=== PATIENT | male | born 1955 | race Caucasian/White ===

== ENCOUNTER 2018-08-20 14:00 | Emergency (ER) | payer BC ==
[2018-08-20 14:06] VITALS: TEMP 98
[2018-08-20] MEDS ORDERED: HYDROmorphone 1 MG/ML 1 ML SYRINGE IVP STA (15:24)
[2018-08-20] MEDS ORDERED: MORPHINE SULFATE 4 MG/ML SYRINGE IV STA (15:25)
--- NOTE | 2018-08-20 15:33 | XR ---
EXAMINATION TYPE: XR chest 2V DATE OF EXAM: 08/20/2018 COMPARISON: NONE HISTORY: Shortness of breath TECHNIQUE: Frontal and lateral views of the chest are obtained. FINDINGS: Scattered senescent parenchymal changes noted. Hyperinflation compatible with COPD. No evidence for infiltrate. No evidence for atelectasis. Heart size is stable. Mediastinal structures are stable and grossly unremarkable. No evidence for hilar prominence. Degenerative changes dorsal spine. IMPRESSION: 1. No evidence for acute pulmonary disease.
--- NOTE | 2018-08-20 15:34 | XR ---
EXAMINATION TYPE: XR lumbar spine 2 or 3V DATE OF EXAM: 08/20/2018 CLINICAL HISTORY: pain TECHNIQUE: Three views of the lumbar spine are submitted. COMPARISON: None. FINDINGS: There are 5 lumbar type vertebral bodies identified. The lumbar spine shows satisfactory alignment w ithout evidence of acute fracture or dislocation. Vertebral body heights are within normal limits. Moderate degenerative changes throughout the lumbar spine. Facet joint arthropathy. The overlying so ft tissue appears unremarkable. IMPRESSION: No acute fracture or dislocation is seen in the lumbar spine. ICD 10 NO FRACTURE, INITIAL EVALUATION
[2018-08-20 15:40] VITALS: RESP 14
[2018-08-20] MEDS ORDERED: IBUPROFEN 600 MG TAB PO STA (15:54)
--- NOTE | 2018-08-20 16:14 | XR ---
EXAMINATION TYPE: XR ankle complete RT, XR foot complete bilateral DATE OF EXAM: 08/20/2018 COMPARISON: NONE HISTORY: Pain TECHNIQUE: Frontal, lateral and oblique images of the right ankle are obtained. Bilateral frontal la teral and oblique images of the feet are also obtained. COMPARISON: None. FINDINGS: There is comminuted calcaneal fracture on the right. Fracture extends through the mid body and anterior portions of the os calcis. There is surrounding soft tissue edema. Ankle mortise is inta ct. No additional fracture seen within the [id number]. Left foot is free of fracture or dislocation at this time. IMPRESSION: Comminuted right calcaneal fracture.
--- NOTE | 2018-08-20 16:42 | XR ---
EXAMINATION TYPE: XR ribs RT DATE OF EXAM: 08/20/2018 COMPARISON: None HISTORY: Right-sided rib pain after a fall TECHNIQUE: 4 views FINDINGS: I see no pleural effusion or pneumothorax. Right lung is clear of infiltrate. Ribs appear i ntact. IMPRESSION: No acute abnormality of the right ribs. No fracture seen.
[2018-08-20 17:09] LABS: Basophils % (A) 0 %; Eosinophils # (A) 0.1 k/uL (0-0.7); Eosinophils % (A) 1 %; HCT 44.6 % (39.0-53.0); HGB 14.6 gm/dL (13.0-17.5); Lymphocytes # (A) 1.3 k/uL (1.0-4.8); Lymphocytes % (A) 13 %; MCH 31.3 pg (25.0-35.0); MCHC 32.7 g/dL (31.0-37.0); MCV 95.7 fL (80.0-100.0); Mean Platelet Volume 6.6; Monocytes # (A) 0.6 k/uL (0-1.0); Monocytes % (A) 6 %; Neutrophils # (A) 8.1 k/uL (1.3-7.7); Neutrophils % (A) 79 %; Platelet Count 198 k/uL (150-450); RBC 4.66 m/uL (4.30-5.90); RDW 13.3 % (11.5-15.5); WBC 10.3 k/uL (3.8-10.6)
--- NOTE | 2018-08-20 17:09 | ED ---
General Adult HPI - General Chief complaint: Extremity Injury, Lower Stated complaint: Foot Injury Source: patient, RN notes reviewed, old records reviewed Mode of arrival: ambulatory Limitations: no limitations - History of Present Illness Initial comments: 63-year-old male patient presents to ED after fall from tree stand. She states she is approximately 8-10 feet when the tree stand he was stepping onto broke and he fell down to the ground. Patient states that he landed primarily on his right heel and then fell to ground patient felt immediate pain in his right heel but denies other complaints. Patient had no trauma to head, trauma neck, trauma to back, loss of consciousness. Patient was unable to or after fall due to pain in right calcaneal region. Patient does not have complaints of his hips , knees, upper or lower extremities back, neck, head. Patient denies chest pain , shortness of breath, abdominal pain, nausea vomiting diarrhea. Systemic: Pt denies fatigue, myalgia, fever/chills, rash. Pt denies weakness, night sweats, weight loss. Neuro: Pt denies headache, visual disturbances, syncope or pre-syncope. HEENT: Pt denies ocular discharge or irritation, otalgia, rhinorrhea, pharyngitis or notable lymphadenopathy. Cardiopulmonary: Pt denies chest pain, SOB, heart palpitations, dyspnea on exertion. Abdominal/GI: Pt denies abdominal pain, n/v/d. : Pt denies dysuria, burning w/ urination, frequency/urgency. Denies new onset urinary or bowel incontinence. MSK: Pt denies myalgia, loss of strength in extremities. - Related Data Allergies Allergy/AdvReac Type Severity Reaction Status Date / Time No Known Allergies Allergy Verified 08/20/18 14:05 Review of Systems ROS Statement: Those systems with pertinent positive or pertinent negative responses have been documented in the HPI. ROS Other: All systems not noted in ROS Statement are negative. Past Medical History Past Medical History: No Reported History History of Any Multi-Drug Resistant Organisms: None Reported Additional Past Surgical History / Comment(s): Shoulder, Knee Adryan, Hip, Elbow Past Psychological History: No Psychological Hx Reported Smoking Status: Never smoker Past Alcohol Use History: None Reported Past Drug Use History: None Reported General Exam - General Exam Comments Initial Comments: Constitutional: NAD, AOX3, Pt has pleasant affect. HEENT: NC/AT, trachea midline, neck supple, no lymphadenopathy. Posterior pharynx non erythematous, without exudates. External ears appear normal, without discharge. Mucous membranes moist. Eyes PERRLA, EOM intact. There is no scleral icterus. No pallor noted. Cardiopulmonary: RRR, no murmurs, rubs or gallops, no JVD noted. Lungs CTAB in anterior and posterior saxena. No peripheral edema. Abdominal exam: Abdomen soft and non-distended. Abdomen non-tender to palpation in all 4 quadrants. Bowel sounds active in LLQ. No hepatosplenomegaly. No ecchymoses, no genny or piña black sign. Neuro: CN II-XII intact. MSK: Patient nonambulatory secondary to pain and right calcaneal region. No cervical spinal tenderness, no ecchymoses or contusions noted on skull, no raccoon eyes, no williamson sign. Thoracic and lumbar spine nontender to palpation. Hips and knees bilaterally nontender to palpation, full range of motion. Patient has edematous right right heel. Edematous right ankle. No ecchymoses. Patient able to wiggle toes. Dorsalis pedis and posterior tibialis pulses +2 bilaterally sensation intact bilaterally. Left ankle and foot without abnormalities. Patient has tenderness to right posterior axillary line. No ecchymoses. Limitations: no limitations Course Vital Signs 08/20/18 08/20/18 14:03 15:38 Temperature 98 F Pulse Rate 75 63 Respiratory 20 14 Rate Blood Pressure 179/111 133/82 O2 Sat by Pulse 97 96 Oximetry Procedures - Orthopedic Splinting/Casting Injury #1 Side: right Lower Extremity Injury Location: foot Lower Extremity Immobilizer: posterior splint, Ralph wrap, synthetic pre-padded splint Other Orthopedic Equipment: crutches Medical Decision Making - Medical Decision Making 63-year-old male patient who suffered fall from tree stand. Patient's primary complaint is right calcaneal pain. Patient additionally has right posterior axillary line flank pain. No ecchymoses on abdomen. Patient had a normal neuro exam. No concern for intracranial pathology or cervical spine injury. Patient physical exam displayed edematous right calcaneal. Tender posterior axillary line on the right side. No other abnormalities. Imaging modalities were conducted including a lumbar film, rib x-ray, chest x-ray, right ankle, right foot. The lumbar film, rib, chest x-ray, right ankle did not display any acute fracture. The right foot displayed a comminuted right comminuted calcaneal fracture. Laboratory investigations were conducted including a CBC, CMP, UA. None of these display acute abnormality. The patient's right fractured calcaneus was put in a posterior ankle splint. Patient neurovascularly intact post-splinting. The patient is to be nonambulatory, on crutches. Patient scheduled for referral to orthopedic surgeon in 1-2 days. Patient to follow up with his primary care physician one to 2 days. Agent to return to ED if decreased sensation in feet, worsened pain, discoloration toes, or any other complaints. Case discussed with Dr. Don. Disposition Clinical Impression: Calcaneal fracture Disposition: HOME SELF-CARE Condition: Good Instructions: Calcaneal Fracture (ED) Additional Instructions: Patient to adhere to previously discussed treatment plan and will take medication(s) as directed. Patient to follow up with PCP in 1-2 days. Patient to return to ED if symptoms do not improve. Patient nonweightbearing. Patient to use crutches. Patient to follow up with orthopedic surgeon 1-2 days. Is patient prescribed a controlled substance at d/c from ED?: No Referrals: Nonstaff,Physician [Primary Care Provider] - 1-2 days Lawrence Coyne MD [Medical Doctor] - 1-2 days Time of Disposition: 17:36
[2018-08-20 17:12] LABS: Appearance,Urine Clear (Clear); Bilirubin,Urine Negative (Negative); Blood,Urine Negative (Negative); Color,Urine Colorless; Glucose,Urine (UA) Negative (Negative); Ketones,Urine Negative (Negative); Leukocyte Esterase,Urine Negative (Negative); Nitrite,Urine Negative (Negative); PH, Urine 6.5 (5.0-8.0); Protein,Urine Negative (Negative); Specific Gravity,Urine 1.003 (1.001-1.035); Urobilinogen,Urine <2.0 mg/dL (<2.0)
[2018-08-20 17:21] LABS: ALT 39 U/L (21-72); AST 30 U/L (17-59); Albumin 4.2 g/dL (3.5-5.0); Alkaline Phosphatase 66 U/L (38-126); Anion Gap 8 mmol/L; Blood Urea Nitrogen 19 mg/dL (9-20); Calcium 9.7 mg/dL (8.4-10.2); Carbon Dioxide 24 mmol/L (22-30); Chloride 109 mmol/L (98-107); Glucose 87 mg/dL (74-99); Potassium 3.9 mmol/L (3.5-5.1); Sodium 141 mmol/L (137-145); Total Bilirubin 0.7 mg/dL (0.2-1.3)
[2018-08-20 18:19] VITALS: BP 121/71; PULSE 67
== END 2018-08-20 18:10 | disposition home or self-care (01) ==
LOC: EC 14:00
DX: S92.001A Unspecified fracture of right calcaneus, initial encounter for closed fracture (principal); Z53.20 Procedure and treatment not carried out because of patient's decision for unspecified reasons; W08.XXXA Fall from other furniture, initial encounter; Y93.89 Activity, other specified; Y92.89 Other specified places as the place of occurrence of the external cause
CPT/HCPCS: 29515; 36415; 71046; 72100; 80053; 81003; 85025; 99284